=== PATIENT | female | born 1995 | race Hispanic/Latino ===

== ENCOUNTER 2021-08-09 09:18 | Inpatient (IN) | payer BC ==
[2021-08-09] MEDS ORDERED: ACETAMINOPHEN 325 MG TAB PO PRN (12:00)
[2021-08-09] MEDS ORDERED: OXYTOCIN DRIP 30 UNITS/500 ML BAG IV SCH ×2 (12:00)
[2021-08-09] MEDS ORDERED: PROMETHAZINE 25 MG TAB PO PRN (12:30)
[2021-08-09] MEDS ORDERED: LOPERAMIDE 2 MG CAP PO PRN (12:30)
[2021-08-09] MEDS ORDERED: OXYTOCIN 10 UNIT/1 ML INJ IM PRN (12:30)
[2021-08-09] MEDS ORDERED: BUTORPHANOL 2 MG/1 ML INJ IV PRN (12:30)
[2021-08-09] MEDS ORDERED: miSOPROStol 200 MCG TAB PR PRN (12:30)
[2021-08-09] MEDS ORDERED: ePHEDrine SULFATE 50 MG/1 ML INJ IV PRN ×2 (12:30→21:56)
[2021-08-09] MEDS ORDERED: CARBOPROST TROMETHAMINE 250 MCG/1 ML INJ IM PRN (12:30)
[2021-08-09] MEDS ORDERED: fentaNYL 100 MCG/2 ML INJ IV PRN (12:30)
[2021-08-09] MEDS ORDERED: MINERAL OIL 30 ML ORAL LIQD PO PRN (12:30)
[2021-08-09] MEDS ORDERED: TERBUTALINE 1 MG/1 ML INJ SUB-Q PRN (12:30)
[2021-08-09] MEDS ORDERED: METHYLERGONOVINE MALEATE 0.2 MG/ML VIAL IM PRN (12:30)
[2021-08-09] MEDS ORDERED: LIDOCAINE (2%) 20 MG/1 ML VIAL 20 ML MDV INFILTRATI SCH (13:00)
[2021-08-09 13:31] LABS: Hemoglobin 11.5 gm/dl (10.1-14.3); Mean Corpuscular HGB Conc 34 % (30-34); Mean Corpuscular Volume 87 fl (79-97); Platelet Count 200 K/mm3 (140-440); Red Blood Count 3.93 M/mm3 (3.65-5.03)
[2021-08-09] MEDS: LACTATED RINGERS 1,000 ML IV SCH ×2 (17:10→21:25)
[2021-08-09] MEDS ORDERED: NALOXONE 2 MG/2 ML INJ IV PRN (21:56)
--- NOTE | 2021-08-09 21:56 | Anesthesia Consultation ---
Anesthesia Consult and Med Hx Date of service: 08/09/21 - Airway Anesthetic Teeth Evaluation: Good ROM Head & Neck: Adequate Mental/Hyoid Distance: Adequate Mallampati Class: Class II Intubation Access Assessment: Probably Good - Pulmonary Exam CTA: Yes - Cardiac Exam Cardiac Exam: RRR - Pre-Operative Health Status ASA Pre-Surgery Classification: ASA2 Proposed Anesthetic Plan: Epidural - Cardiovascular System Hx Hypertension: No - Central Nervous System Hx Seizures: No Hx Psychiatric Problems: No - Endocrine Hx Renal Disease: No Hx Hypothyroidism: No Hx Hyperthyroidism: No - Hematic Hx Anemia: No Hx Sickle Cell Disease: No - Other Systems Hx Alcohol Use: No
[2021-08-09] MEDS ORDERED: fentaNYL-BUPIV 2 MCG/ML-0.125% 200 MCG/100 ML BAG EPIDURAL SCH (22:00)
--- NOTE | 2021-08-09 22:18 | Progress Note ---
Labor Epidural - Labor Epidural Start Time: 22:05 Stop Time: 22:09 Performed by:: STEPHAN FELIX Procedure: Patient is requesting epidural for labor pain. H&P, and labs reviewed. Procedure explained, questions answered, consent obtained. Patient in sitting position with blood pressure cuff and pulse ox on and working. Timeout performed immediately before start of procedure. Sterile chlorahexadine 0.5% prep/drape. 3 mL 1% lidocaine skin wheal at L[3]-L[4]. 18-gauge Netsizetead epidural needle advanced to [id number] with saline at [7] cm. 27-gauge spinal needle advanced until clear, free-flowing CSF. Intrathecal dexmedetomidine [5] mcg administered and needle removed. Epidural catheter advanced to [12] cm, negative aspiration for blood and csf, negative test dose 3 ml 1.5% lidocaine with epinephrine. Steri-strips and tegaderm applied, followed by tape reinforcement. Patient tolerated procedure well.
[2021-08-10] MEDS: LACTATED RINGERS 1,000 ML IV SCH (01:27)
--- NOTE | 2021-08-10 03:56 | History and Physical Report ---
History of Present Illness Date of examination: 08/09/21 Date of admission: 08/09/21 13:16 Chief complaint: I think my water broke History of present illness: Pt is a 25 year old who presents at 39.5 weeks because patient thought that she broke her water but her ROM test was negative. Pt was however mona every 3 minutes. Her course has been unremarkable. She started care in the first trimester with [facility]. Past History Past Medical History: no pertinent history Past Surgical History: no surgical history Social history: - Obstetrical History Expected Date of Delivery: 08/11/21 Actual Gestation: 39 Week(s) 6 Day(s) : 3 Number of Living Children: 0 Medications and Allergies Allergies Allergy/AdvReac Type Severity Reaction Status Date / Time No Known Allergies Allergy Unverified 08/09/21 10:00 Home Medications Medication Instructions Recorded Confirmed Last Taken Type No Known Home Medications [No 08/09/21 08/09/21 Unknown History Reported Home Medications] Active Meds: Active Medications Acetaminophen (Acetaminophen 325 Mg Tab) 650 mg PO Q4H PRN PRN Reason: Pain, Mild (1-3) Butorphanol Tartrate (Butorphanol 2 Mg/1 Ml Inj) 1 mg IV Q2H PRN PRN Reason: Pain, Moderate(4-6) LABOR PAIN Carboprost Tromethamine (Carboprost Tromethamine 250 Mcg/1 Ml Inj) 250 mcg IM ONCE PRN PRN Reason: Uterine Bleeding Ephedrine Sulfate (Ephedrine Sulfate 50 Mg/1 Ml Inj) 10 mg IV Q2M PRN PRN Reason: Hypotension Fentanyl (Fentanyl 100 Mcg/2 Ml Inj) 100 mcg IV Q2H PRN PRN Reason: Pain,Severe (7-10) LABOR PAIN Last Admin: 08/09/21 20:58 Dose: 100 mcg Documented by: Oxytocin/Sodium Chloride (Pitocin/Ns 30 Unit/500ml) 30 units in 500 mls @ 2 mls/hr IV TITR MARTIN; Protocol Last Titration: 08/09/21 22:35 Dose: 6 ml/hr, 6 mls/hr Documented by: Lactated Ringer's (Lactated Ringers) 1,000 mls @ 125 mls/hr IV DIRECT MARTIN Last Admin: 08/10/21 01:27 Dose: 125 mls/hr Documented by: Oxytocin/Sodium Chloride (Pitocin/Ns 30 Unit/500ml) 30 units in 500 mls @ 40 mls/hr IV TITR [facility]; Protocol Fentanyl/Bupivacaine/Sodium Chlor (Fentanyl-Bupiv 2 Mcg/Ml-0.125%) 200 mcg in 100 mls @ 12 mls/hr EPIDURAL TITR [facility]; Protocol Last Admin: 08/10/21 01:21 Dose: 12 mls/hr Documented by: Lidocaine (Lidocaine (2%) 20 Mg/1 Ml Vial 20 Ml Mdv) 20 ml INFILTRATI ONCE@1300 MARTIN Stop: 08/10/21 12:59 Loperamide HCl (Loperamide 2 Mg Cap) 2 mg PO ONCE PRN PRN Reason: give with Hemabate Methylergonovine Maleate (Methylergonovine Maleate 0.2 Mg/Ml Vial) 0.2 mg IM ONCE PRN PRN Reason: Uterine Bleeding Mineral Oil (Mineral Oil 30 Ml Oral Liqd) 30 ml PO QHS PRN PRN Reason: Constipation Misoprostol (Misoprostol 200 Mcg Tab) 800 mcg VT ONCE PRN PRN Reason: Uterine Bleeding Naloxone HCl (Naloxone 2 Mg/2 Ml Inj) 0.2 mg IV Q5M PRN PRN Reason: Respiratory sedation Oxytocin (Oxytocin 10 Unit/1 Ml Inj) 10 unit IM ONCE PRN PRN Reason: Uterine Bleeding Promethazine HCl (Promethazine 25 Mg Tab) 25 mg PO Q6H PRN PRN Reason: Nausea And Vomiting Terbutaline Sulfate (Terbutaline 1 Mg/1 Ml Inj) 0.25 mg SUB-Q ONCE PRN PRN Reason: Hyperstimulation/Hypertonicity Review of Systems All systems: negative Genitourinary: leakage of fluid, contractions - Vital Signs Vital signs: Vital Signs Pulse BP Pulse Ox 109 H 155/98 98 08/09/21 10:02 08/09/21 10:02 08/09/21 10:02 Temp Pulse Resp BP Pulse Ox 98.7 F 136 H 19 115/72 97 08/10/21 03:46 08/10/21 03:48 08/10/21 03:46 08/10/21 03:44 08/10/21 03:48 - Physical Exam Breasts: Cardiovascular: Regular rate, Normal S1, Normal S2 Lungs: Positive: Clear to auscultation, Normal air movement Abdomen: Positive: normal appearance, soft, normal bowel sounds. Negative: distention, tenderness Genitourinary (Female): Positive: normal external genitalia, normal perenium Vulva: both: normal Vagina: Positive: normal moisture. Negative: discharge Cervix: Negative: lesion, discharge Uterus: Positive: normal size, normal contour Adnexa: both: normal Anus/Rectum: Positive: normal perianal skin, heme negative. Negative: rectal mass, hemorrhoids Extremities: Deep Tendon Reflex Grade: Normal +2 - Obstetrical FHR: auscultation normal Cervical Dilatation: 3 Cervical Effacement Percentage: 80 station: -3 Uterine Contraction Pattern: Regular Uterine Tone Measurement Phase: Contraction Uterine Contraction Intensity: Moderate Results Result Diagrams: 08/09/21 11:50 Abnormal lab results 08/09/21 Range/Units 11:50 WBC 13.4 H (4.5-11.0) K/mm3 RDW 16.0 H (13.2-15.2) % All other labs normal. Assessment and Plan IUP at 39.5 weeks in early labor with regular contractions. Will admit for labor augmentation. Anticipate .
--- NOTE | 2021-08-10 04:00 | Procedure Note ---
OB Delivery Note - Delivery Date of Delivery: 08/10/21 Surgeon: VIRGILIO MENDOZA Estimated blood loss: other (150) - Vaginal Delivery presentation: vertex Delivery position: OA Intrapartum events: none Delivery induction: none Delivery monitor: external FHT, external uterine Route of delivery: Delivery placenta: spontaneous Delivery cord: 3 umbilical vessels Episiotomy: midline (small, superficial) Delivery laceration: none Delivery repair: vicryl Anesthesia: epidural Delivery comments: Viable male delivered over intact perineum at 0325 a.m. had no evidence of nuchal cord. Infant had spontaneous cry and was placed on maternal abdomen. Cord was clamped and cut when finished pulsating. Weight 8 pounds 8 ounces. Apgars 8/9. Placenta was delivered spontaneously and intact with three-vessel cord. Patient had a small midline episiotomy that was repaired with 2-0 Vicryl. Excellent hemostasis. Patient tolerated procedure well. - A at 1 minute: 8 at 5 minutes: 9 Gender: Male (8 pounds 8 ounces)
[2021-08-10] MEDS ORDERED: MAGNESIUM HYDROXIDE (MOM) ORAL LIQD UDC PO PRN (05:35)
[2021-08-10] MEDS ORDERED: HYDROcodone/ACETAMINOPHEN 5-325 MG TAB PO PRN (05:35)
[2021-08-10] MEDS ORDERED: diphenhydrAMINE 25 MG CAP PO PRN (05:35)
[2021-08-10] MEDS ORDERED: WITCH HAZEL/ GLYCERIN PAD TP PRN (05:35)
[2021-08-10] MEDS ORDERED: PROMETHAZINE 25 MG TAB PO PRN (05:35)
[2021-08-10] MEDS ORDERED: ONDANSETRON 4 MG/2 ML INJ IV PRN (05:35)
[2021-08-10] MEDS ORDERED: PROMETHAZINE 25 MG RECT SUPP PR PRN (05:35)
[2021-08-10] MEDS ORDERED: LANOLIN/ZINC/DIMETHICONE (LANSINOH) 7 GM TP PRN (05:35)
[2021-08-10] MEDS: IBUPROFEN 600 MG TAB PO SCH ×3 (05:40→17:48)
[2021-08-10] MEDS ORDERED: OXYTOCIN DRIP 30 UNITS/500 ML BAG IV SCH (08:30)
[2021-08-10] MEDS ORDERED: AMMONIA INHALANT IH ONE ×2 (08:35→08:51)
[2021-08-10] MEDS ORDERED: D5W/LACTATED RINGERS 1,000 ML IV ONE (08:45)
[2021-08-10 13:20] LABS: Hematocrit 24.4 % (30.3-42.9); Hemoglobin 8.2 gm/dl (10.1-14.3)
[2021-08-10] MEDS ORDERED: SODIUM CHLORIDE 0.9% 500 ML 500 ML IV ONE ×2 (14:44→20:15)
[2021-08-10] MEDS ORDERED: ACETAMINOPHEN 325 MG TAB PO PRN (14:48)
--- NOTE | 2021-08-10 16:01 | Post Anesthesia Evaluation ---
- Post Anesthesia Evaluation Patient Participated: Yes Airway Patent: Yes Stable Respiratory Function: Yes Nausea/Vomiting: No Temp > 96.8F: Yes Pain Manageable: Yes Adequeate Hydration: Yes Anesthesia Complications: No Block Receding Appropriately: Yes
[2021-08-10] MEDS ORDERED: D5W/LACTATED RINGERS 1,000 ML IV SCH (19:00)
[2021-08-11] MEDS: IBUPROFEN 600 MG TAB PO SCH ×4 (04:49→18:30)
[2021-08-11 09:27] LABS: Hematocrit 26.6 % (30.3-42.9); Hemoglobin 8.9 gm/dl (10.1-14.3)
--- NOTE | 2021-08-11 13:23 | Discharge Summary ---
Providers - Providers Date of Admission: 08/09/21 13:16 Date of discharge: 08/11/21 Attending physician: VIRGILIO MENDOZA Primary care physician: VIRGILIO MENDOZA Hospitalization Reason for admission: active labor Delivery: Episiotomy: midline Other procedures: none complications: transfusion, uterine atony Discharge diagnosis: IUP at term delivered [place] baby: male Condition at discharge: Stable Disposition: 01 HOME / SELF CARE / HOMELESS Plan - Discharge Medications Prescriptions: Ibuprofen [Motrin] 800 mg PO Q8HR PRN #40 tablet PRN Reason: Pain, Mild (1-3) HYDROcodone/APAP 5-325 [[place] 5/325] 1 each PO Q6HR PRN #15 tablet PRN Reason: Pain - Provider Discharge Summary Activity: routine, no sex for 6 weeks, no heavy lifting 4 weeks, no strenuous exercise Diet: routine Instructions: routine Additional instructions: [] Smoking cessation referral if applicable(refer to patient education folder for contact #) [] Refer to [facility] Booklet Call your doctor immediately for: * Fever > 100.5 * Heavy vaginal bleeding ( >1 pad per hour) * Severe persistent headache * Shortness of breath * Reddened, hot, painful area to leg or breast * Drainage or odor from incision. * Keep incision clean and dry at all times and follow doctor's instructions regarding bathing/showering - Follow up plan Follow up: VIRGILIO MENDOZA MD [Primary Care Provider] - 14 Days
--- NOTE | 2021-08-11 13:26 | Progress Note ---
Assessment and Plan PPD 1 s/p and subsequent PPH, now doing well and stable post transfusion. Pt ok to be discharged on today if baby able to go. Subjective - Subjective Date of service: 08/11/21 Interval history: PPD 1 s/p . Doing well. Pt had episode of severely heavy bleeding about 5 hours post delivery and precipitous drop in hemoglobin. She received transfusion of 2 units prbcs. She is now feeling much better. Patient reports: appetite normal, voiding normally, pain well controlled, ambulating normally : doing well Objective - Vital Signs Latest vital signs: Vital Signs Temp Pulse Resp BP Pulse Ox Pulse Ox 08/11/21 08:14 98.2 F 106 H 18 113/82 100 08/11/21 08:00 100 08/11/21 05:38 18 08/11/21 04:49 18 08/11/21 04:30 98.9 F 98 H 18 112/65 100 08/11/21 04:00 98 H 18 114/75 100 08/11/21 03:50 115 H 18 113/71 99 08/11/21 03:20 120 H 18 133/87 99 08/11/21 02:50 121 H 18 131/83 99 08/11/21 02:20 99.3 F 119 H 18 130/82 98 08/11/21 02:05 99.6 F 127 H 18 127/80 99 08/11/21 00:08 98.7 F 116 H 16 120/78 97 08/10/21 22:59 98.2 F 109 H 18 105/65 99 08/10/21 22:29 109 H 18 106/62 99 08/10/21 22:00 100 08/10/21 21:59 115 H 18 104/69 98 08/10/21 21:29 116 H 18 103/59 99 08/10/21 21:00 119 H 18 107/64 99 08/10/21 20:51 18 08/10/21 20:44 98.6 F 118 H 18 112/64 99 08/10/21 20:37 125 H 18 106/65 99 08/10/21 19:51 18 08/10/21 16:09 98.4 F 120 H 16 111/66 97 Intake and Output 08/10/21 08/11/21 08/11/21 22:59 06:59 14:59 Intake Total 440 740 Output Total 400 Balance 40 740 Intake: Oral 440 240 Blood Product 0 500 Leukoreduced Red Blood 0 250 Cells Unit [id number] Leukoreduced Red Blood 250 Cells Unit [id number] Output: Urine 400 Void 400 Other: Total, Intake Amount 240 240 Total, Output Amount 400 # Voids Void 1 1 - Exam Breasts: Present: deferred Cardiovascular: Present: Regular rate, Normal S1, Normal S2 Lungs: Present: Clear to auscultation, Normal air movement Abdomen: Present: normal appearance, soft Extremities: Present: normal - Labs Labs: Abnormal lab results 08/09/21 08/10/21 08/11/21 Range/Units 13:10 12:30 08:51 Hgb 8.2 L D 8.9 L (10.1-14.3) gm/dl Hct 24.4 L D 26.6 L (30.3-42.9) % Crossmatch See Detail
--- NOTE | 2021-08-11 13:28 | Event Note ---
Date: 08/10/21 REceived call from nurse stating that patient had syncopal episode while using the restroom. Nurse expressed several large clots for total of greater than 600 cc of blood. Pt heart rate is 115. H&H showed significant drop. Nurse advised to initiate transfusion protocol.
[2021-08-12] MEDS: IBUPROFEN 600 MG TAB PO SCH ×2 (00:01→05:52)
[2021-08-12 10:55] VITALS: BP 127/90
== END 2021-08-12 11:15 | disposition home or self-care (01) | DRG 806 ==
LOC: TRG 09:18 → APU 09:20 → TRG 11:49 → APU 13:16 → LD 18:32 → OB 08-10 05:58
PROVIDERS: ADMIT Obstetrics & Gynecology; ATTEND Obstetrics & Gynecology
PROC: 10E0XZZ Delivery of Products of Conception, External Approach (ICD-10-PCS; principal; 2021-08-10)
PROC: 0W8NXZZ Division of Female Perineum, External Approach (ICD-10-PCS; 2021-08-10)
PROC: 3E0R3BZ Introduction of Anesthetic Agent into Spinal Canal, Percutaneous Approach (ICD-10-PCS; 2021-08-10)
PROC: 00HU33Z Insertion of Infusion Device into Spinal Canal, Percutaneous Approach (ICD-10-PCS; 2021-08-10)
PROC: 30233N1 Transfusion of Nonautologous Red Blood Cells into Peripheral Vein, Percutaneous Approach (ICD-10-PCS; 2021-08-11)
DX: O90.81 Anemia of the puerperium (principal); D62 Acute posthemorrhagic anemia; Z37.0 Single live birth; Z3A.39 39 weeks gestation of pregnancy; Z20.822 Contact with and (suspected) exposure to COVID-19
CPT/HCPCS: 36415; 84112; 85014; 85018; 85027; 86592; 86850; 86900; 86901; 86920; 99211; G0378; G0463; J2590; J3010; J7040; J7120; J7121; P9016; U0003